=== PATIENT | female | born 2005 | race Caucasian/White ===

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

== ENCOUNTER 2024-04-20 08:26 | Emergency (ER) | payer OTHER ==
[2024-04-20 09:06] VITALS: BP 122/81
--- NOTE | 2024-04-20 09:51 | ED Physician Documentation ---
PD HPI HEENT - Stated complaint Stated Complaint: LT EAR PX/SINUS PRESSURE - Chief complaint Chief Complaint: Heent - History obtained from History obtained from: Patient - History of Present Illness Timing - onset: How many weeks ago (1) Timing - duration: Weeks (1) Timing - details: Gradual onset, Still present Location: Left ear (has had congestion with sinus pressure for week or so. Now wih left TM muffled and now day of painful.) Associated symptoms: Congestion, Rhinorrhea Similar symptoms before: Has not had sx before Review of Systems Constitutional: denies: Fever, Chills, Myalgias Ears: reports: Ear pain. denies: Drainage/discharge Nose: reports: Congestion Respiratory: reports: Cough PD PAST MEDICAL HISTORY - Past Medical History Cardiovascular: None Respiratory: None Neuro: None Endocrine/Autoimmune: None GI: None CHIEF OF PRODUCTION: None : None HEENT: None Psych: None Musculoskeletal: None Derm: None - Past Surgical History Past Surgical History: No HEENT: Tonsil/Adenoidectomy - Present Medications Home Medications: Ambulatory Orders Medication Instructions Recorded Confirmed Amox/Clav 875/125 [Augmentin] 1 each PO Q12H #14 tablet 04/20/24 Cetirizine [ZyrTEC] 10 mg PO DAILY #30 tablet 04/20/24 Fluticasone Propionate 2 spr NS DAILY 30 Days #1 ml 04/20/24 HYDROcod/ACETAM 5/325 [[place] 5/325] 1 ea PO Q6H PRN #12 tablet 04/20/24 dexAMETHasone [Decadron] 4 mg PO DAILY #5 tablet 04/20/24 - Allergies Allergies/Adverse Reactions: Allergies Allergy/AdvReac Type Severity Reaction Status Date / Time No Known Drug Allergies Allergy Verified 04/20/24 08:50 - Social History Does the pt smoke?: No Smoking Status: Never smoker Does the pt drink ETOH?: No Does the pt have substance abuse?: No - Immunizations Immunizations are current?: Yes - POLST Patient has POLST: No PD ED PE NORMAL - Vitals Vital signs reviewed: Yes - General General: Alert and oriented X 3, Well developed/nourished - HEENT HEENT: PERRL Results - Vitals Vitals: Oxygen O2 Source Room air PD Medical Decision Making - ED course Complexity details: considered differential (has had sinus congestion for a week , and now poor hearing and pain left ear. ), d/w patient Departure - Departure Disposition: 01 Home, Self Care Clinical Impression: Sinusitis Otitis media Qualifiers: Otitis media type: suppurative Condition: Stable Record reviewed to determine appropriate education?: Yes Instructions: ED Otitis Media Acute Adult Follow-Up: Katlin Alexander MD [Primary Care Provider] - Prescriptions: Amox/Clav 875/125 [Augmentin] 1 each PO Q12H #14 tablet dexAMETHasone [Decadron] 4 mg PO DAILY #5 tablet Fluticasone Propionate 2 spr NS DAILY 30 Days #1 ml HYDROcod/ACETAM 5/325 [[place] 5/325] 1 ea PO Q6H PRN #12 tablet PRN Reason: Pain Cetirizine [ZyrTEC] 10 mg PO DAILY #30 tablet Comments: Your left ear does look markedly red with fluid behind it. No signs of rupture. This likely stems from the sinus infection you have been having with movement up the eustachian tube to the middle ear. As such would want to treat the sinuses as well with a combination of anti-inflammatory, antibiotic and antihistamine (these would be common treatments for the ear infection as well). However we do want to also sustain fluid drainage from the sinuses and middle ear beyond clearing the infection and so use fluticasone/Flonase as well as cetirizine for up to a month. I sent your prescriptions to your preferred pharmacy. Add Tylenol or hydrocodone if needed for worse pain. I would anticipate needing this just the first couple of days or so as things are improving. I am prescribing a short course of narcotic pain medication for you. These are potentially dangerous and addictive medications that should be used carefully. These medications may constipate you. Take an [id number] stool softener such as docusate twice daily with plenty of water while taking these medications. If you go 24 hours without a bowel movement, take [id number] MiraLAX, per package instructions. Do not drink or drive while taking these medications. If you received narcotic or sedating medications while in the emergency department do not drive for 24 hours. Store this medication in a safe, secure place and out of reach of children. It is a violation of federal law to give or sell this medication to another person or to use in a manner other than prescribed. The ED will not refill narcotic prescriptions, including prescriptions lost or stolen. You can dispose of unwanted medications at the [facility]'s office or at several pharmacies such as [facility]. Again I apologize for the delay in for seeing you and also the steps along the way and discharging you. Forms: PCP List Discharge Date/Time: 04/20/24 11:48
[2024-04-20] MEDS: dexAMETHasone 4 MG TABLET PO STA (10:56)
[2024-04-20] MEDS: HYDROcod/ACETAM 5/325 MG TABLET PO STA (10:57)
[2024-04-20] MEDS: AMOX/CLAV 875 MG/125 MG TABLET PO STA (10:57)
[2024-04-20] MEDS: IBUPROFEN 600 MG TABLET PO STA (10:57)
[2024-04-20 11:56] VITALS: O2SAT 99
== END 2024-04-20 11:48 | disposition home or self-care (01) ==
LOC: ED 08:26
DX: J32.9 Chronic sinusitis, unspecified (principal)
CPT/HCPCS: 99283; A9270; J8540